=== PATIENT | female | born 1985 | race African-American/Black ===

== ENCOUNTER 2017-05-18 21:22 | Emergency (ER) | payer MEDICAID ==
[~2017-05-18] VITALS: Ht 162.6 cm; Wt 104.0 kg
[2017-05-18] MEDS ORDERED: SODIUM CHLORIDE 0.9% 1,000 ML IV ONE (23:35)
[2017-05-18 23:43] VITALS: BP 115/66
[2017-05-18] MEDS ORDERED: ONDANSETRON HCL 4MG/2ML VIAL IV ONE (23:45)
[2017-05-18] MEDS ORDERED: ACETAMINOPHEN 325MG TABLET PO ONE (23:45)
[2017-05-19 00:10] LABS: BASOPHILS % 0.6 % (0.0-2.0); EOSINOPHILS % 1.2 % (0.0-5.0); HEMATOCRIT. 33.2 % (36.0-48.0); MEAN CORPUSCULAR HEMOGLOBIN 27.5 pg (28.0-32.0); MEAN CORPUSCULAR VOLUME 83.3 fL (81.0-99.0); MEAN PLATELET VOLUME 7.5 fl (7.4-10.4); MONOCYTES % 7.4 % (2.0-8.0); NEUTROPHILS % 63.8 % (40.0-76.0); PLATELET 348 x1000/uL (130-400); RED BLOOD CELL COUNT 3.99 mill/uL (4.2-5.4); RED CELL DISTRIBUTION WIDTH 15.7 % (11.6-14.6)
[2017-05-19 00:14] LABS: CHLORIDE 103 mEq/L (98-107)
[2017-05-19 00:37] LABS: B-HCG QUANTITATIVE 22370 mIU/mL (<3)
[2017-05-19 00:46] LABS: CLARITY URINE CLEAR (CLEAR); COLOR URINE YELLOW (YELLOW); KETONES URINE NEGATIVE (NEGATIVE); LEUKOCYTE ESTERASE URINE NEGATIVE (NEGATIVE); NITRITE URINE NEGATIVE (NEGATIVE); OCCULT BLOOD URINE NEGATIVE (NEGATIVE); PH URINE 5.5 (4.5-8.0); PROTEIN URINE NEGATIVE (NEGATIVE); SPECIFIC GRAVITY URINE 1.034 (1.005-1.030); UROBILINOGEN URINE 0.2 E.U./dL (0.2-1.0)
== END 2017-05-19 03:51 | disposition home or self-care (01) ==
LOC: ER 21:39
DX: O26.892 Other specified pregnancy related conditions, second trimester (principal); R10.2 Pelvic and perineal pain; Z3A.16 16 weeks gestation of pregnancy
CPT/HCPCS: 36415; 76805; 80053; 81003; 81025; 84702; 85025; 86850; 86900; 86901; 96374; 99285; J2405; J7030

== ENCOUNTER 2018-02-16 06:29 | Emergency (ER) | payer MEDICAID ==
[~2018-02-16] VITALS: Ht 165.1 cm; Wt 91.0 kg
[2018-02-16] MEDS ORDERED: SODIUM CHLORIDE 0.9% 1,000 ML IV ONE (08:36)
[2018-02-16] MEDS ORDERED: MORPHINE SULFATE 4 MG/ML CPJ (NOT FOR IM USE) IV STA (08:36)
[2018-02-16] MEDS ORDERED: ONDANSETRON HCL 4MG/2ML INJ IV STA (08:36)
[2018-02-16 09:26] LABS: EOSINOPHILS % 3.7 % (0.0-5.0); HEMOGLOBIN. 11.6 g/dL (12.0-16.0); LYMPHOCYTES % 34.9 % (20.0-50.0); MEAN CORPUSCULAR HEMOGLOBIN 26.5 pg (28.0-32.0); MEAN CORPUSCULAR VOLUME 82.2 fL (81.0-99.0); MEAN PLATELET VOLUME 7.6 fl (7.4-10.4); NEUTROPHILS % 51.4 % (40.0-76.0); PLATELET 363 x1000/uL (130-400); RED BLOOD CELL COUNT 4.38 mill/uL (4.2-5.4); RED CELL DISTRIBUTION WIDTH 15.7 % (11.6-14.6)
[2018-02-16 09:32] LABS: CHLORIDE 105 mEq/L (98-107)
[2018-02-16 09:34] LABS: INR 1.1; PROTHROMBIN TIME 10.6 sec (9.1-11.1)
[2018-02-16 09:38] LABS: HCG SCREEN NEGATIVE
[2018-02-16 09:53] LABS: CLARITY URINE CLOUDY (CLEAR); COLOR URINE YELLOW (YELLOW); KETONES URINE NEGATIVE (NEGATIVE); LEUKOCYTE ESTERASE URINE 2+ (NEGATIVE); NITRITE URINE NEGATIVE (NEGATIVE); OCCULT BLOOD URINE NEGATIVE (NEGATIVE); PH URINE 6.5 (4.5-8.0); PROTEIN URINE NEGATIVE (NEGATIVE); SPECIFIC GRAVITY URINE 1.011 (1.005-1.030); UROBILINOGEN URINE 0.2 E.U./dL (0.2-1.0)
[2018-02-16] MEDS ORDERED: CEFTRIAXONE 1 G PREMIX 50 ML IV ONE (10:30)
[2018-02-16] MEDS ORDERED: AZITHROMYCIN 500 MG TABLET PO ONE (10:30)
[2018-02-16 13:15] VITALS: BP 123/71
== END 2018-02-16 13:28 | disposition home or self-care (01) ==
LOC: ER 06:29
DX: N39.0 Urinary tract infection, site not specified (principal); R03.0 Elevated blood-pressure reading, without diagnosis of hypertension
CPT/HCPCS: 36415; 74176; 80053; 81003; 81025; 83690; 84703; 85025; 85610; 87077; 87086; 87186; 96365; 96375; 99284; J0696; J2270; J2405; J7030

== ENCOUNTER 2022-01-07 08:39 | Emergency (ER) | payer MEDICAID ==
[~2022-01-07] VITALS: Ht 162.6 cm; Wt 113.0 kg
[2022-01-07] MEDS ORDERED: ACETAMINOPHEN 325MG TABLET PO ONE (09:00)
[2022-01-07] MEDS ORDERED: ACET-2708 MT (09:48)
[2022-01-07 10:16] VITALS: BP 126/68
== END 2022-01-07 10:18 | disposition home or self-care (01) ==
LOC: ER 08:39
DX: S00.83XA Contusion of other part of head, initial encounter (principal); R73.03 Prediabetes; W01.198A Fall on same level from slipping, tripping and stumbling with subsequent striking against other object, initial encounter; Y93.89 Activity, other specified; Y92.89 Other specified places as the place of occurrence of the external cause; Y99.0 Civilian activity done for income or pay
CPT/HCPCS: 81025; 99284

== ENCOUNTER 2022-12-31 05:55 | Emergency (ER) | payer MEDICAID, MEDICARE ==
[~2022-12-31] VITALS: Ht 162.6 cm; Wt 109.0 kg
[~2022-12-31 05:55] MED LIST: ACET-2708 MT
[2022-12-31 06:08] VITALS: TEMP 98.1; O2SAT 99
[2022-12-31 09:35] VITALS: BP 122/89; PULSE 60; RESP 16
== END 2022-12-31 09:38 | disposition home or self-care (01) ==
LOC: ER 05:55
DX: T17.990A Other foreign object in respiratory tract, part unspecified in causing asphyxiation, initial encounter (principal); Z88.5 Allergy status to narcotic agent; Z88.6 Allergy status to analgesic agent; W44.8XXA Other foreign body entering into or through a natural orifice, initial encounter; Y93.89 Activity, other specified; Y92.89 Other specified places as the place of occurrence of the external cause; Y99.8 Other external cause status
CPT/HCPCS: 71045; 99283

== ENCOUNTER 2024-09-22 01:36 | Emergency (ER) | payer MEDICARE ==
[~2024-09-22] VITALS: Ht 175.3 cm; Wt 74.0 kg
[~2024-09-22 01:36] MED LIST changes: +ALBU6.7H15 INH; +ONDA4TAB50 MT
[2024-09-22 01:43] VITALS: O2SAT 99
[2024-09-22 03:29] LABS: CLARITY URINE CLOUDY (CLEAR); COLOR URINE YELLOW (YELLOW); GLUCOSE URINE NEGATIVE (NEGATIVE); KETONES URINE NEGATIVE (NEGATIVE); LEUKOCYTE ESTERASE URINE NEGATIVE (NEGATIVE); NITRITE URINE NEGATIVE (NEGATIVE); OCCULT BLOOD URINE NEGATIVE (NEGATIVE); PH URINE 5.5 (4.5-8.0); PROTEIN URINE NEGATIVE (NEGATIVE); SPECIFIC GRAVITY URINE 1.031 (1.005-1.030); UROBILINOGEN URINE 0.2 E.U./dL (0.2-1.0)
[2024-09-22 04:07] LABS: SQUAMOUS EPITHELIAL CELL URINE 1+ /lpf (RARE/1+)
[2024-09-22 04:08] LABS: RBC URINE 0-2 /hpf (0-2)
[2024-09-22 04:09] LABS: BACTERIA URINE 1+
[2024-09-22] MEDS: METOCLOPRAMIDE HCL 10MG TABLET PO ONE (04:23)
[2024-09-22] MEDS: KETOROLAC 15MG/ML VIAL IV ONE (04:24)
[2024-09-22 06:15] VITALS: BP 108/69; PULSE 75; RESP 20; TEMP 36.7; O2SAT 100
== END 2024-09-22 06:16 | disposition home or self-care (01) ==
LOC: ER 01:36
DX: R51.9 Headache, unspecified (principal); Z88.5 Allergy status to narcotic agent; Z79.899 Other long term (current) drug therapy
CPT/HCPCS: 81003; 81025; 70450; 96374; 99285; J8597; J1885; Z7610

== ENCOUNTER 2024-12-19 14:20 | Inpatient (IN) | payer MEDICARE ==
[~2024-12-19] VITALS: Ht 162.6 cm; Wt 96.6 kg
[2024-12-19 14:27] VITALS: O2SAT 97
[2024-12-19 16:58] LABS: BASOPHILS % 0.5 % (0.0-2.0); EOSINOPHILS % 1.9 % (0.0-5.0); HEMATOCRIT. 35.1 % (36.0-48.0); HEMOGLOBIN. 11.4 g/dL (12.0-16.0); LYMPHOCYTES % 34.9 % (20.0-50.0); MEAN PLATELET VOLUME 7.5 fl (7.4-10.4); MONOCYTES % 7.8 % (2.0-8.0); NEUTROPHILS % 54.9 % (40.0-76.0); PLATELET 340 x1000/uL (130-400); RED BLOOD CELL COUNT 4.04 mill/uL (4.2-5.4); RED CELL DISTRIBUTION WIDTH 15.3 % (11.6-14.6)
[2024-12-19 17:13] LABS: HCG SCREEN NEGATIVE; TROPONIN I HIGH SENSITIVITY < 4 ng/L (3.0-34)
[2024-12-19 17:15] LABS: CREATININE 1.0 mg/dL (0.6-1.0)
[2024-12-19 17:16] LABS: UREA NITROGEN BLOOD 8 mg/dL (9-23)
[2024-12-19 17:17] LABS: ASPARTATE AMINOTRANSFERASE 12 IU/L (<34)
[2024-12-19 17:18] LABS: BILIRUBIN DIRECT < 0.1 mg/dL (<=3.0); BILIRUBIN TOTAL 0.4 mg/dL (0.1-1.0); PROTEIN TOTAL 7.0 g/dL (6.0-8.3)
[2024-12-19 18:09] VITALS: BP 106/56; PULSE 75; RESP 18; TEMP 36.2; O2SAT 99
[2024-12-19 20:00] VITALS: BP 109/63; PULSE 76; RESP 18; TEMP 36.4; O2SAT 98
[2024-12-19] MEDS ORDERED: TIRZ10PE3 (22:33)
[2024-12-19] MEDS: ACETAMINOPHEN 325MG TABLET PO PRN (23:33)
[2024-12-20] VITALS: BP 93/53; PULSE 66; RESP 18; TEMP 36.3; O2SAT 97
[2024-12-20 02:22] LABS: HEPATITIS C AB NON REACTIVE (Neg) (Negative)
[2024-12-20 04:00] VITALS: BP 95/54; PULSE 61; RESP 18; TEMP 36.2; O2SAT 97
[2024-12-20 08:00] VITALS: BP_SYST 103; BP_SYST 95; BP_DIAS 60; BP_DIAS 65; PULSE 67; PULSE 70; RESP 17; RESP 18; TEMP 37.1964; TEMP 37.5; O2SAT 100
[2024-12-20 09:09] LABS: BASOPHILS % 0.6 % (0.0-2.0); EOSINOPHILS % 2.9 % (0.0-5.0); HEMATOCRIT. 36.4 % (36.0-48.0); HEMOGLOBIN. 11.9 g/dL (12.0-16.0); LYMPHOCYTES % 42.7 % (20.0-50.0); MEAN PLATELET VOLUME 8.0 fl (7.4-10.4); MONOCYTES % 9.0 % (2.0-8.0); NEUTROPHILS % 44.8 % (40.0-76.0); PLATELET 368 x1000/uL (130-400); RED BLOOD CELL COUNT 4.21 mill/uL (4.2-5.4); RED CELL DISTRIBUTION WIDTH 15.3 % (11.6-14.6)
[2024-12-20 09:21] LABS: TRIGLYCERIDE 78.0 mg/dL (0-150)
[2024-12-20 09:22] LABS: LDL CHOLESTEROL 121.0 mg/dL (5-100)
[2024-12-20] MEDS: ASPIRIN 81MG TABLET PO SCH (09:49)
[2024-12-20] MEDS: ENOXAPARIN 40MG/0.4ML SYR SUBCUT SCH (09:50)
[2024-12-20] MEDS: ONDANSETRON HCL 4MG/2ML INJ IV PRN (09:51)
[2024-12-20] MEDS ORDERED: LORAZEPAM 2MG/ML UD SYRINGE IV PRN (10:00)
[2024-12-20 12:00] VITALS: BP 100/64; PULSE 68; RESP 18; TEMP 37.2; O2SAT 97
[2024-12-20] MEDS: LEVETIRACETAM 500MG TABLET PO SCH (14:17)
[2024-12-20 16:00] VITALS: BP 95/60; PULSE 67; RESP 18; TEMP 37.2; O2SAT 100
[2024-12-20 20:00] VITALS: BP 95/64; PULSE 69; RESP 17; TEMP 36.3; O2SAT 99
[2024-12-20] MEDS: ATORVASTATIN CALCIUM 20MG TABLET PO SCH (20:41)
[2024-12-21] VITALS: BP 99/63; PULSE 69; RESP 18; TEMP 36.4; O2SAT 98
[2024-12-21] MEDS: ZOLPIDEM TARTRATE 5MG TABLET PO PRN (00:20)
[2024-12-21 04:00] VITALS: BP 94/66; PULSE 58; RESP 18; TEMP 36.3; O2SAT 96
[2024-12-21 06:32] LABS: CLARITY URINE CLEAR (CLEAR); COLOR URINE YELLOW (YELLOW); GLUCOSE URINE NEGATIVE (NEGATIVE); KETONES URINE NEGATIVE (NEGATIVE); LEUKOCYTE ESTERASE URINE NEGATIVE (NEGATIVE); NITRITE URINE NEGATIVE (NEGATIVE); OCCULT BLOOD URINE NEGATIVE (NEGATIVE); PH URINE 6.5 (4.5-8.0); PROTEIN URINE NEGATIVE (NEGATIVE); SPECIFIC GRAVITY URINE 1.011 (1.005-1.030); UROBILINOGEN URINE 0.2 E.U./dL (0.2-1.0)
[2024-12-21 07:25] LABS: *AMPHETAMINES SCREEN URINE NEGATIVE (NEGATIVE); *BARBITURATES SCREEN URINE NEGATIVE (NEGATIVE); *BENZODIAZEPINES SCREEN URINE NEGATIVE (NEGATIVE); *COCAINE SCREEN URINE NEGATIVE (NEGATIVE); CANNABINOID URINE SCREEN NEGATIVE (NEGATIVE); ECSTASY MDMA SCREEN URINE NEGATIVE (NEGATIVE); METHADONE URINE SCREEN NEGATIVE (NEGATIVE); OPIATES URINE SCREEN NEGATIVE (NEGATIVE); PHENCYCLIDINE URINE SCREEN NEGATIVE (NEGATIVE)
[2024-12-21 08:00] VITALS: BP 93/51; PULSE 67; RESP 18; TEMP 35.8; O2SAT 96
[2024-12-21] MEDS ORDERED: KEPP500 MT ×2 (10:11→12:36)
[2024-12-21 12:00] VITALS: BP 120/66; PULSE 73; RESP 18; TEMP 35.9; O2SAT 99
[2024-12-21 13:33] VITALS: BP 120/66; PULSE 73; RESP 18; TEMP 96.7
== END 2024-12-21 15:45 | disposition home or self-care (01) | DRG 53 ==
LOC: ER 14:20 → EDBEDREQ 14:55 → EDBEDREQTM 17:22 → ENRESERV 17:37 → 6WST 17:41
PROVIDERS: ADMIT Internal Medicine; ATTEND Internal Medicine
DX: R56.9 Unspecified convulsions (principal); I50.9 Heart failure, unspecified; E66.9 Obesity, unspecified; R55 Syncope and collapse; Z88.5 Allergy status to narcotic agent; R07.2 Precordial pain; Z68.36 Body mass index [BMI] 36.0-36.9, adult
CPT/HCPCS: 36415; 70551; 71045; 80048; 80061; 80076; 80305; 81003; 83735; 83880; 84484; 84703; 85025; 86705; 87340; 93005; 99285; J1650; J2405